=== PATIENT | female | born 2000 | race Caucasian/White ===

== ENCOUNTER → 2022-09-23 | Outpatient (CLI) | payer OTHER, MEDICAID, SELFPAY ==
[2022-09-23] MEDS: 0.9% NaCl Peripheral Flush Adult/Peds IV (10:56)
[2022-09-23 11:08] VITALS: BP 118/73; PULSE 105; RESP 16; TEMP 36.5; O2SAT 99; BMI 26.6
[2022-09-23 11:39] VITALS: BP 113/69; PULSE 96; RESP 16; TEMP 36.9; O2SAT 99
[2022-09-23 12:39] VITALS: BP 113/72; PULSE 91; RESP 14; TEMP 37.1; O2SAT 100
[2022-09-23 13:39] VITALS: BP 108/81; PULSE 98; RESP 16; TEMP 36.8; O2SAT 98
== END | disposition home or self-care (01) ==
LOC: MEDOUTP 10:49
PROVIDERS: PCP Family Medicine; Referring Provider Advanced Practice Midwife; Visit Provider Advanced Practice Midwife
DX: D62 Acute posthemorrhagic anemia (principal); N92.0 Excessive and frequent menstruation with regular cycle
CPT/HCPCS: 36430; 86850; 86900; 86901; 86920; 86922; J7040; P9016; A4216